=== PATIENT | male | born 1950 | race Caucasian/White ===

== ENCOUNTER 2017-10-19 11:08 | Day surgery (SDC) | payer MEDICARE ==
[2017-10-14 13:35] VITALS: BMI 24.3
[2017-10-19] MEDS ORDERED: Midazolam 2 MG/2 ML VIAL ONE (13:40)
[2017-10-19] MEDS ORDERED: Propofol 10 mg/ml Inj (20 ML) ONE (13:40)
[2017-10-19] MEDS ORDERED: ceFAZolin 1 gm in NS 2 GM/200 ML BAG IVPB ONE (13:56)
[2017-10-19] MEDS ORDERED: Lidocaine 2% MPF (5 ml) Inj ONE (14:00)
[2017-10-19] MEDS ORDERED: Bacitracin 500 Units/gm Oint Foilpak UD ONE (14:26)
[2017-10-19] MEDS ORDERED: HYDROmorphone 0.5 mg/0.5 ml ISec IVP PRN (14:47)
[2017-10-19] MEDS ORDERED: Oxycodone/Acetaminophen 5/325 mg Tab PO PRN (14:51)
[2017-10-19] MEDS ORDERED: Sodium Chloride 0.9% 500 ML IV ONE (15:15)
[2017-10-19 16:54] VITALS: RESP 16; O2SAT 100
[2017-10-19 18:22] VITALS: BP 158/63; PULSE 61; TEMP 97.6
--- NOTE | 2017-10-22 00:19 | OP ---
PROCEDURE DATE: 10/19/2017 PREOPERATIVE DIAGNOSIS: Large right hydrocele. POSTOPERATIVE DIAGNOSIS: Large right hydrocele. SURGEON: Steve Bueno MD TYPE OF ANESTHESIA: LMA. BLOOD LOSS: Less than 3 mL. DESCRIPTION OF PROCEDURE: With the patient in supine position and after starting anesthesia, genitalia was prepped and draped in sterile fashion. The patient was given 2 gm of Rocephin. A transverse incision on the right scrotum was done through the skin, subcutaneous tissue, down to the tunica. When the tunica was opened, about over 150 mL of clear, straw-colored fluid drained. All the subcutaneous tissue bleeders coagulated. The testes delivered outside the wound, and tunica closed with interrupted 2-0 chromic suture to close like accordion by obliterating the whole tunica completely around the testicle. After irrigating the testicle and the incision multiple times, the testes placed back into the scrotum. Skin and subcutaneous closed using 2-0 chromic. Bacitracin applied to the skin and fluffs and dressing applied to the wound. The patient tolerated the procedure well and was transferred to the recovery room in stable condition. Steve Bueno MD
== END 2017-10-19 18:40 | disposition home or self-care (01) ==
LOC: C.SDS 11:08
PROVIDERS: ATTEND Specialist
DX: N43.3 Hydrocele, unspecified (principal)
CPT/HCPCS: 55040; J0690; J1170; J1885; J2250; J2405; J2704; J3010; J7030; J7040